=== PATIENT | male | born 1975 | race Caucasian/White ===

== ENCOUNTER 2019-07-16 07:06 | Inpatient (IN) ==
[2019-07-16 07:49] LABS: BASO# 0.03 X1000 (0.0-0.2); BASO% 0.5 % (0.0-0.8); EOS# 0.14 X1000 (0.0-0.7); EOS% 2.2 % (0.0-10.0); HEMATOCRIT 48.1 % (42.0-52.0); HEMOGLOBIN 16.8 g/dL (14.0-18.0); IMM GRAN# 0.02 X1000 (0.0-0.04); IMM GRAN% 0.3 % (0.0-0.5); LYMPH% 17.3 % (20.5-51.1); MCH 29.8 PG (27-31); MCHC 34.9 g/dL (33-37); MCV 85.4 FL (81-99); MONO% 9.4 % (1.7-9.3); MPV 10.3 FL (7.4-10.4); NEUT# 4.47 X1000 (1.4-6.5); NEUT% 70.3 % (42.2-75.2); PLT 289 X1000 (130-400); RBC 5.63 XMIL (4.7-6.1); RDW 12.8 % (11.5-14.5); WBC 6.36 X1000 (4.8-10.8)
[2019-07-16 07:58] LABS: URINE SOURCE CLEAN CATCH
[2019-07-16 08:12] LABS: AGAP 14; ALB/GLOB RATIO 1.2; ALBUMIN 4.3 g/dL (3.5-5.0); ALKALINE PHOSPHATASE 177 U/L (32-122); AMYLASE 44 U/L (20-200); BUN 15 mg/dL (8-22); CALCIUM 9.9 mg/dL (8.8-10.2); CHLORIDE 97 mmol/L (98-107); COSMO 283; CREATININE 1.2 mg/dL (0.7-1.2); ESTIMATED GFR > 60; GLUCOSE 111 mg/dL (70-104); GOT 119 U/L (10-34); GPT 291 U/L (10-44); LIPASE 27 U/L (13-60); SODIUM 141 mmol/L (136-145); TCO2 30 mmol/L (25-35); TOTAL BILIRUBIN 8.24 mg/dL (0.20-1.00)
[2019-07-16 08:13] LABS: BLOOD URINE NEGATIVE (NEGATIVE); COLOR YELLOW; GLUCOSE URINE NEGATIVE (NEGATIVE); KETONE URINE NEGATIVE (NEGATIVE); LEUKOCYTES URINE NEGATIVE (NEGATIVE); NITRITE URINE NEGATIVE (NEGATIVE); PH URINE 6.5; PROTEIN URINE 30 mg/dL (NEGATIVE); SP GRAVITY URINE 1.024; TURBIDITY URINE CLEAR (CLEAR); UROBILINOGEN URINE 3 mg/dL (NORMAL)
[2019-07-16 08:16] LABS: UR EPITHELIAL CELLS <10 /HPF (<10); URINE BACTERIA NEGATIVE /HPF; URINE RBC 20-40 /HPF (<10); URINE WBC <10 /HPF (<10)
[2019-07-16 08:30] LABS: URINE CRYSTALS NONE SEEN
[2019-07-16 08:31] LABS: BILIRUBIN URINE LARGE (NEGATIVE)
--- NOTE | 2019-07-16 08:48 | PROVIDER DOCUMENTATION ---
HPI-Abdominal Pain/GI Problem - General Chief Complaint: Abdominal Pain Stated Complaint: ABDOMINAL PAIN Time Seen by Provider: 07/16/19 08:06 Source: patient Allergies/Adverse Reactions: Patient Allergies Allergy/AdvReac Type Severity Reaction Status Date / Time No Known Allergies Allergy Verified 07/16/19 10:18 Home Medications: Home Medication List Medication Instructions Recorded Confirmed Last Taken Type Amlodipine [Norvasc] 1 tab PO DAILY 07/16/19 07/16/19 Unknown History Escitalopram [Lexapro] 1 tab PO DAILY 07/16/19 07/16/19 Unknown History Hydrochlorothiazide 1 tab PO DAILY 07/16/19 07/16/19 Unknown History Losartan [Cozaar] 1 tab PO DAILY 07/16/19 07/16/19 Unknown History Potassium Chloride 1 tab PO DAILY 07/16/19 07/16/19 Unknown History - History of Present Illness-ABD Nature of Presenting Problems: 43 yr old M, hx of HTN, presenting with a now-5 day hx of gnawing epigastric abdominal pain, with associated nausea, increasing jaundice, and pale stools. The pt states that he has been having "attacks" on and off for the past few years, and has had two "attacks" in the past preceding month. The pt describes these "attacks" as gnawing abdominal discomfort, sometimes accompanied with spasms, in the epigastric region; usually associated with nausea, but not always; pt also notes that the symptoms tend to start after a meal or a dark beer. He has been evaluated by Dr. Daily; has undergone barium swallow, and is sent to undergo EGD later this month; this most recent episode started and has lasted the longest of any of his episodes; his notes that he has also changed in color, becoming more yellow. Abdominal Pain Onset Location: reports: epigastric Pain Radiation: reports: RUQ Quality of Pain: reports: cramping, indigestion Severity in ED: reports: moderate Onset/Duration: reports: 5 days ago Timing: reports: still present Activities at Onset: reports: eating Exposure to sick contacts?: No Modifying Factors: improves with: nothing Associated Symptoms: reports: nausea Dark Stools Present?: reports: none noticed, other (pale stools) Review of Systems - Adult - REVIEW OF SYSTEMS - ADULT Constitutional: reports: no symptoms reported Eyes: reports: no symptoms reported Ears, Nose, Mouth & Throat: reports: no symptoms reported Cardiovascular: reports: no symptoms reported Respiratory: reports: no symptoms reported Gastrointestinal: reports: see HPI Genitourinary: reports: no symptoms reported Musculoskeletal: reports: no symptoms reported Integumentary: reports: see HPI Neurological: reports: no symptoms reported Psychiatric: reports: no symptoms reported Past History - Adult - PAST MEDICAL HISTORY-ADULT Review of Records: reports: Nursing Assessment Review Cardiovascular: reports: HTN - PRIOR SURGERIES/PROCEDURES Surgical/Procedure History: reports: none - SOCIAL HISTORY Smoking: chew Living Situation: family Physical Exam-General - PHYSICAL EXAM-ADULT Initial Vital Signs Reviewed: Yes - CONSTITUTIONAL General Appearance: alert, no apparent distress - EYES Eyes: other (sclera are yellow) - HEAD, EARS, NOSE, MOUTH & THROAT HENMT: normocephalic/atraumatic, moist mucous membranes - RESPIRATORY Respiratory: lungs clear, normal breath sounds - CARDIOVASCULAR Cardiovascular: regular rate, rhythm - GASTROINTESTINAL (ABDOMEN) Abdominal Exam: soft, tenderness (mild, epigastric) - MUSCULOSKELETAL Extremity: no pedal edema, no calf tenderness - SKIN Integumentary: warm/dry, jaundice (mild tint, most noticeable in the eyes) - PSYCHIATRIC Psych/Mental Status: oriented x 3 Progress - PLAN OF CARE/RESULTS Progress/Plan/Lab Results: Vital Signs - 8 hr 07/16/19 07:18 Temperature 97.8 F Pulse Rate 115 H Respiratory Rate 20 Blood Pressure 132/84 O2 Sat by Pulse Oximetry 96 Laboratory Results - last 24 hr 07/16/19 07/16/19 07/16/19 07:24 07:24 07:36 WBC 6.36 RBC 5.63 Hgb 16.8 Hct 48.1 MCV 85.4 MCH 29.8 MCHC 34.9 RDW Std Deviation 12.8 Plt Count 289 MPV 10.3 Immature Gran % (Auto) 0.3 Neut % (Auto) 70.3 Lymph % (Auto) 17.3 L [place] % (Auto) 9.4 H Eos % (Auto) 2.2 Baso % (Auto) 0.5 Immature Gran # (Auto) 0.02 Neut # (Auto) 4.47 Lymph # (Auto) 1.10 L [place] # (Auto) 0.60 H Eos # (Auto) 0.14 Baso # (Auto) 0.03 Sodium 141 Potassium 3.0 L Chloride 97 L Carbon Dioxide 30 Anion Gap 14 BUN 15 Creatinine 1.2 Estimated GFR/1.73 m2 > 60 BUN/Creatinine Ratio 13 Glucose 111 H Calculated Osmolality 283 Calcium 9.9 Total Bilirubin 8.24 H AST 119 H ALT 291 H Alkaline Phosphatase 177 H Total Protein 8.0 Albumin 4.3 Globulin 3.7 Albumin/Globulin Ratio 1.2 Amylase 44 Lipase 27 Urine Source CLEAN CATCH Urine Color YELLOW Urine Turbidity CLEAR Urine pH 6.5 Ur Specific [place] 1.024 Urine Protein 30 A Ur Glucose (Stick) NEGATIVE Ur Ketones (Stick) NEGATIVE Urine Blood NEGATIVE Urine Nitrite NEGATIVE Urine Bilirubin LARGE A Urobilinogen Dipstick 3 A Urine Leukocytes NEGATIVE Urine WBC (Auto) <10 Urine RBC (Auto) 20-40 A U Epithel Cells (Auto) <10 Urine Bacteria (Auto) NEGATIVE Urine Crystals NONE SEEN Small Round Cells Not Reportable Urine Casts Not Reportable Urine Yeast-like Cells Not Reportable Orders Category Date Time Status Saline Loc DIRECTED Care 07/16/19 07:20 Active NPO Diet 07/16/19 07:[address] ABDOMEN/PELVIS W/O CONTRAST [CT] Stat Exams 07/16/19 08:42 Ordered AMYLASE [CHEM] Stat Lab 07/16/19 07:24 Completed CBC WITH ELECTRONIC DIFF [HEME] Stat Lab 07/16/19 07:24 Completed COMPREHENSIVE METABOLIC PANEL [CHEM] Stat Lab 07/16/19 07:24 Completed LIPASE [CHEM] Stat Lab 07/16/19 07:24 Completed URINALYSIS W/POSS RFLX CULT [URINALYSIS] Stat Lab 07/16/19 07:36 Completed URINE MANUAL MICROSCOPIC [URINALYSIS] Stat Lab 07/16/19 07:36 Completed Result Diagrams: 07/16/19 08:55 07/16/19 08:55 - XRAY 1 XRAY Study: Chest Impression: See EMR Report ("EXAM: CHEST-1 VIEW HISTORY: abdominal pain/ sepsis? TECHNIQUE: Single view COMPARISON: None. FINDINGS: Poor inspiratory effort. The right hemidiaphragm is elevated.. The heart is not enlarged. The vessels are not distended. Minimal increased markings in the left base believed to be atelectasis. No consolidation. No effusion identified. IMPRESSION: No pneumonia") - CT/MRI 1 CT Study: Abdomen, Pelvis Impression: See EMR Report ( EXAM: CT ABDOMEN/PELVIS W/O CONTRAST 07/16/2019 HISTORY: abd pain, jaundice TECHNIQUE: This exam was performed using automated exposure control, adjustment of mA or kV according to patient size, and/or use of iterative reconstruction technique. COMMENT: There are linear opacities in the posterior medial right lower lobe and the left lower lobe, which were not present on 08/22/2017. There is mild bilateral gynecomastia. The gallbladder is distended and edematous in appearance which was not the case previously. There is a small densely calcified gallstone measuring 2 mm in the neck of the gallbladder. The cystic duct appears somewhat distended. The common bile duct measures over 13 mm. No appreciable stones are demonstrated in the common duct. The pancreas is unremarkable. The adrenal glands are not enlarged. The spleen is enlarged measuring over 14 cm. There is some apparent periportal edema and intrahepatic biliary dilatation. The kidneys are without evidence of hydronephrosis or stones. There is no evidence of bowel obstruction. The aorta is calcified without evidence of aneurysm. There is an appendicolith however the appendix is not distended and there is no evidence of inflammation. There is some stool in the rectum and sigmoid colon. The urinary bladder is not distended. There is no free fluid. The regional skeleton is intact. IMPRESSION: Biliary dilatation, cholelithiasis and possible cholecystitis.) - CONSULTS/PCP/HOSPITALIST Notification #1 *Consult/PCP/Hospitalist*: Mitali (for hospitalist) Time Discussed: 09:55 Consult Disposition: other (asked me to speak with [facility] to determine if they wanted to admit to the hospitalist service) #2 Consult: Dr. Duque Time Discussed: 10:05 Consult Disposition: other (asks for hospitalist to admit; will see inpatient) #3 Consult: Mitali (for hospitalist) Time Discussed: 10:18 Consult Disposition: Admit Departure - Departure Date of Disposition Decision: 07/16/19 Time of Disposition Decision: 10:06 DIAGNOSIS: Cholecystitis, acute with cholelithiasis Qualifiers: Biliary obstruction: with biliary obstruction Qualified Code(s): K80.01 - Calculus of gallbladder with acute cholecystitis with obstruction Disposition: ADMITTED INPATIENT 09 Certified Medical Emergency: Emergent Condition: Stable - Critical Care Note This patient required my direct & personal management of CC.: No Attestation - Physician/ ABA Attestation Patient care was provided by Advanced Practice Provider:: No The physician spent face to face time with patient:: Yes Advanced Practice Provider documentation review:: Supervising physician onsite and consulted in the evaluation and care of this patient. The physician did have a face to face encounter with the patient.
[2019-07-16 09:25] LABS: BASO# 0.02 X1000 (0.0-0.2); BASO% 0.3 % (0.0-0.8); EOS# 0.11 X1000 (0.0-0.7); EOS% 1.5 % (0.0-10.0); HEMATOCRIT 47.5 % (42.0-52.0); HEMOGLOBIN 16.2 g/dL (14.0-18.0); IMM GRAN# 0.02 X1000 (0.0-0.04); IMM GRAN% 0.3 % (0.0-0.5); LYMPH# 1.03 X1000 (1.2-3.4); LYMPH% 14.4 % (20.5-51.1); MCH 29.3 PG (27-31); MCHC 34.1 g/dL (33-37); MCV 85.9 FL (81-99); MONO# 0.78 X1000 (0.11-0.59); MONO% 10.9 % (1.7-9.3); MPV 10.4 FL (7.4-10.4); NEUT# 5.17 X1000 (1.4-6.5); NEUT% 72.6 % (42.2-75.2); PLT 257 X1000 (130-400); RBC 5.53 XMIL (4.7-6.1); RDW 12.7 % (11.5-14.5); WBC 7.13 X1000 (4.8-10.8)
--- NOTE | 2019-07-16 09:30 | Diag Imaging Result Doc PS360 ---
EXAM: CT ABDOMEN/PELVIS W/O CONTRAST 07/16/2019 HISTORY: abd pain, jaundice TECHNIQUE: This exam was performed using automated exposure control, adjustment of mA or kV according to patient size, and/or use of iterative reconstruction technique. COMMENT: There are linear opacities in the posterior medial right lower lobe and the left lower lobe, which were not present on 08/22/2017. There is mild bilateral gynecomastia. The gallbladder is distended and edematous in appearance which was not the case previously. There is a small densely calcified gallstone measuring 2 mm in the neck of the gallbladder. The cystic duct appears somewhat distended. The common bile duct measures over 13 mm. No appreciable stones are demonstrated in the common duct. The pancreas is unremarkable. The adrenal glands are not enlarged. The spleen is enlarged measuring over 14 cm. There is some apparent periportal edema and intrahepatic biliary dilatation. The kidneys are without evidence of hydronephrosis or stones. There is no evidence of bowel obstruction. The aorta is calcified without evidence of aneurysm. There is an appendicolith however the appendix is not distended and there is no evidence of inflammation. There is some stool in the rectum and sigmoid colon. The urinary bladder is not distended. There is no free fluid. The regional skeleton is intact. IMPRESSION: Biliary dilatation, cholelithiasis and possible cholecystitis. Electronically signed by Abhinav Boykin 07/16/2019 9:27 AM
--- NOTE | 2019-07-16 09:30 | Diag Imaging Result Doc PS360 ---
EXAM: CHEST-1 VIEW HISTORY: abdominal pain/ sepsis? TECHNIQUE: Single view COMPARISON: None. FINDINGS: Poor inspiratory effort. The right hemidiaphragm is elevated.. The heart is not enlarged. The vessels are not distended. Minimal increased markings in the left base believed to be atelectasis. No consolidation. No effusion identified. IMPRESSION: No pneumonia Electronically signed by Dilan Mckenzie 07/16/2019 9:28 AM
[2019-07-16 09:42] LABS: INR 1.01; PROTIME 13.4 Seconds (11.0-16.0)
[2019-07-16 09:43] LABS: PTT 29.1 Seconds (22.3-41.8)
[2019-07-16 09:46] LABS: AGAP 12; ALB/GLOB RATIO 1.5; ALBUMIN 4.3 g/dL (3.5-5.0); ALKALINE PHOSPHATASE 181 U/L (32-122); BUN 17 mg/dL (8-22); CHLORIDE 99 mmol/L (98-107); COSMO 285; CREATININE 1.2 mg/dL (0.7-1.2); ESTIMATED GFR > 60; GLUCOSE 101 mg/dL (70-104); GOT 114 U/L (10-34); GPT 286 U/L (10-44); POTASSIUM 3.5 mmol/L (3.5-5.1); SODIUM 142 mmol/L (136-145); TCO2 31 mmol/L (25-35); TOTAL BILIRUBIN 8.53 mg/dL (0.20-1.00); TOTAL PROTEIN 7.2 g/dL (6.3-8.3)
[2019-07-16] MEDS ORDERED: ZOSYN 4.5 GM in NS 100 ML IV ONE (09:53)
[2019-07-16 09:55] LABS: CK PROFILE 90 U/L (24-204)
[2019-07-16] MEDS ORDERED: SENSORCAINE 0.25%/EPI 1:200,000 ONE (11:27)
[2019-07-16] MEDS ORDERED: SODIUM CHLORIDE 0.9% ONE (11:27)
[2019-07-16] MEDS ORDERED: LR 1,000 ML ONE ×3 (11:28→14:42)
[2019-07-16] MEDS ORDERED: KEFZOL 1 GM/D5W 1 GM/50 ML IVPB ONE (11:33)
[2019-07-16] MEDS ORDERED: DIPRIVAN 1% ONE (11:56)
[2019-07-16] MEDS ORDERED: ZEMURON ONE ×4 (11:57→13:35)
[2019-07-16] MEDS ORDERED: ZOFRAN ONE (11:57)
[2019-07-16] MEDS ORDERED: TORADOL ONE (11:57)
[2019-07-16] MEDS ORDERED: QUELICIN (DOSE) ONE (11:57)
[2019-07-16] MEDS ORDERED: DECADRON ONE (11:57)
[2019-07-16] MEDS ORDERED: XYLOCAINE-MPF 2% ONE (11:57)
[2019-07-16] MEDS ORDERED: FENTANYL ONE (11:59)
--- NOTE | 2019-07-16 12:00 | HISTORY AND PHYSICAL ---
PRIMARY CARE PROVIDER: Dr. Ramos CHIEF COMPLAINT: Abdominal discomfort, jaundice, pale stools, dark urine. HISTORY OF PRESENT ILLNESS: Mr. Samson is a 43-year-old male with a past medical history of hypertension, who reports now he has been having episodes of "attacks" on and off for the past few years with this that he describes as epigastric pain that is sometimes associated with nausea and it tends to flare up after meals or dark beer. He recently had 2 attacks last month. He has been evaluated by Dr. Daily. He underwent a barium swallow that just showed some mild gastric reflux. He was set to undergo an EGD later this month. However, he has been in the bed since with this constant abdominal pain. He did have 1 episode of vomitus on . His noticed yesterday that his eyes were yellow and his skin had become jaundice, so he was brought to the ED today where his liver enzymes were found to be elevated and bilirubin in his urine. He underwent an abdominal pelvis CT that showed biliary dilatation, cholelithiasis, and possible cholecystitis. Dr. Duque was called, and he is currently being taken to surgery for his cholecystectomy. He denies any headache, dizziness, fever, chills, chest pain, shortness of breath. REVIEW OF SYSTEMS: A 12-point review of systems completely negative except for those mentioned in HPI. PAST MEDICAL HISTORY: Hypertension. PAST SURGICAL HISTORY: [place] teeth removed years ago. FAMILY HISTORY: Reviewed and noncontributory. SOCIAL HISTORY: He is . He has 2 children. is at bedside. No tobacco use. Alcohol only on occasion. However, he will do chew tobacco. ALLERGIES: No known drug allergies. HOME MEDICATIONS: Will need to be compiled, but he does take hydrochlorothiazide, Norvasc, potassium, and losartan. PHYSICAL EXAMINATION: VITAL SIGNS: Temperature is 99.3 degrees, heart rate 102, respirations 21, blood pressure 138/104, and O2 is 94% on room air. GENERAL: Mr. Samson is a 43-year-old male who is sitting up in the stretcher in no acute distress. HEENT/SKIN: Atraumatic, normocephalic. PERRL. Sclerae are yellow. Skin is mildly jaundiced. CARDIOVASCULAR: S1 and S2 appreciated. No murmurs, gallops, rubs noted. RESPIRATORY: Lung sounds clear bilaterally. GASTROINTESTINAL: Soft, nontender, nondistended. Positive bowel sounds in 4 quadrants. EXTREMITIES: Lower extremities are negative for edema. Bilateral pedal pulses are pounding. NEUROLOGIC: No focal deficits noted. DIAGNOSTIC DATA: Abdomen and pelvis CT showed biliary dilatation, cholelithiasis, and possible cholecystitis. LABORATORY DATA: White count 7, hemoglobin and hematocrit of 16 and 47, platelet count is 257,000. Sodium 142, potassium 3.5, BUN 17, creatinine 1.2, blood glucose 101, T-bilirubin 8.53, AST 114, ALT 286, alkaline phosphatase 181. Urinalysis, 20 to 40 RBCs, large bilirubin, 30 protein. ASSESSMENT AND PLAN: 1. Acute cholecystitis with cholelithiasis and biliary obstruction. The patient will undergo a cholecystectomy with Dr. Duque. He remains nothing by mouth. His last meal and drink was last night. We will continue with IV fluids. He has been given IV antibiotics. Continue treatment per Dr. Duque. 2. Jaundice secondary to #1 3. Hypertension. We will resume home medications when reconciled. 4. Transaminitis secondary to #1. We will continue to trend LFTs. 5. Further recommendation to follow physician evaluation, laboratory, and diagnostic data. Dictated by AIXA Hargrove for Golden Moreland MD cc: MD Nakia Laird MD Bhavna Gowda, MD MTDD
[2019-07-16] MEDS ORDERED: VERSED ONE (12:03)
--- NOTE | 2019-07-16 12:09 | HISTORY AND PHYSICAL ---
HISTORY OF PRESENT ILLNESS: Mr. Vic Samson is a 43-year-old white male who presents to our emergency department with jaundice. He was evaluated in the emergency department, which included a CT scan of his abdomen and pelvis which suggested a dilated gallbladder with stones within it and also dilated common bile duct. We were asked to evaluate him for obstructive jaundice. PAST MEDICAL HISTORY: Hypertension. MEDICATIONS: Norvasc, Lexapro, hydrochlorothiazide, Cozaar, and potassium. ALLERGIES: No known drug allergies. SOCIAL HISTORY: His was at the bedside. He works in an [employer] shop. FAMILY HISTORY: Was reviewed with the patient and was noncontributory. REVIEW OF SYSTEMS: A 14-point review of systems was performed and was negative except for some intermittent epigastric pain. He has been evaluated by my partner, Dr. Isidro Daily for reflux including an upper GI. He was scheduled for pH monitoring in the near future. PHYSICAL EXAMINATION: VITAL SIGNS: On exam, his temperature is 97.8 degrees, pulse rate 115, blood pressure 132/84, and O2 saturation 96%. He is 235 pounds 6 feet. HEENT: He is jaundiced. He has no oral lesions. Satisfactory dentition. NECK: No cervical or supraclavicular lymphadenopathy. CARDIAC: His heart has a regular rate. LUNGS: Clear to auscultation and percussion bilaterally. ABDOMEN: Soft. There is no previous scar. I could not palpate his gallbladder. There was no evidence of hernia no costovertebral tenderness. RECTAL: Exam was not performed. He does have palpable peripheral pulses. No peripheral edema. NEUROLOGICAL: He is alert and oriented x3 and appropriate. No focal deficit. DIAGNOSTIC DATA: His white blood cell count is normal. Hematocrit is 47%. His total bilirubin is 8.53 with elevated liver function tests. CT scan suggests gallstones and possible acute cholecystitis. PLAN: Laparoscopic cholecystectomy with intraoperative cholangiogram. I have discussed the procedure in detail with him and his at the bedside in the emergency department. We specifically discussed risks of surgery, which include bleeding, infection, injury to the extrahepatic bile ducts requiring reoperation, conversion of laparoscopic to open cholecystectomy, bile leak requiring reoperation for drainage, and injury to intra-abdominal contents for trocar placement. He understands that he may have stones within his common bile duct and need ERCP. cc: Nakia Duque MD
[2019-07-16] MEDS ORDERED: SODIUM CHLORIDE 0.9% 10 ML ONE ×2 (12:43→14:53)
[2019-07-16] MEDS ORDERED: NEO-SYNEPHRINE ONE (12:43)
[2019-07-16] MEDS ORDERED: EPHEDRINE ONE ×2 (13:26→13:48)
[2019-07-16] MEDS ORDERED: NEOSTIGMINE ONE (13:48)
[2019-07-16] MEDS ORDERED: ROBINUL ONE (13:48)
--- NOTE | 2019-07-16 14:10 | Diag Imaging Result Doc PS360 ---
EXAM: OPERATIVE CHOLANGIOGRAM 07/16/2019 HISTORY: CHOLECYSTECTOMY TECHNIQUE: Intraoperative cholangiogram three images COMMENT: There is a filling defect in the distal common bile duct. This is highly suggestive of stone. No contrast is seen in the duodenum. IMPRESSION: Retained stone in the distal common bile duct. Electronically signed by Abhinav Boykin 07/16/2019 2:07 PM
[2019-07-16] MEDS: PHENERGAN ONE ×2 (14:55→15:08)
--- NOTE | 2019-07-16 15:05 | OPERATIVE NOTE ---
PROCEDURE DATE: 07/16/2019 PREOPERATIVE DIAGNOSIS: Acute cholecystitis with cholelithiasis. POSTOPERATIVE DIAGNOSIS: Acute cholecystitis with cholelithiasis. PRINCIPAL PROCEDURE: Laparoscopic cholecystectomy with intraoperative cholangiogram. SURGEON: Nakia Duque MD. BRICK CLEANER: RN. ANESTHESIA: General in addition to local anesthetic. ESTIMATED BLOOD LOSS: 75 mL. DRAINS: A Seferino drain right upper quadrant of the abdomen. INDICATIONS: Mr. Vic Samson is a 43-year-old white male who presented to our emergency department with a several day history of epigastric abdominal pain. He was also jaundice. A CT scan was performed which documented acute cholecystitis with cholelithiasis and a dilated extrahepatic bile ducts. Cholecystectomy was recommended. FINDINGS: The liver appeared to be healthy. The gallbladder was tightly distended. The cystic duct was dilated. He had acute cholecystitis with cholelithiasis. This was a difficult procedure in dissecting the triangle of [place]. We did do an intraoperative cholangiogram, which suggested a stone in the distal common bile duct. The dye did not get into the duodenum, the common bile duct was dilated as was the cystic duct. We had to use Endoloops to control the cystic duct because of its size. We felt we did the operation safely. We did leave a drain. No other intraabdominal pathology was noted. DESCRIPTION OF PROCEDURE: The patient was brought to the operating room, placed supine, received general anesthesia, was intubated. The abdomen was prepped and draped within a sterile field. We made a curvilinear incision below the umbilicus using a 15 blade scalpel. Veress needle was introduced through this incision into the abdomen. Pneumoperitoneum was established. The Veress needle was removed and we placed 11 mm trocar through this incision into the abdomen. The camera was placed through this port and the abdomen was explored for injury, there was none. Three other trocars were placed along the right costal margin under direct vision the camera. I placed a 11 mm trocar just to the right of the midline and two 5 mm trocars in our midclavicular and anterior axillary lines. We had to decompress the gallbladder initially so we used a needle and suction to remove white bile out of the gallbladder. Once it was decompressed we could manipulate it. We used a grasper with teeth to grab the fundus and retract it superiorly along with the right lobe of the liver. Another grasper was used to grab the body of the gallbladder and we began dissecting out the triangle of [place]. This was a difficult dissection and we had to place a fan retractor through another 11 mm trocar site left side of abdomen so that we could push down the omentum and transverse colon so that we could see the triangle of [place]. We bluntly dissected this area. We identified the cystic artery. A clip was placed distally, 2 proximally. It was divided using hook scissors. We had a lymph node right here at the triangle of Calot. We had to carefully dissect out the cystic duct which was dilated. It was fairly short. Once we felt we had the anatomy identified, I made a small incision in the cystic duct right at the cystic duct gallbladder junction and used a Taut intraoperative cholangiogram catheter to perform the cholangiogram with the findings above. After this we took the gallbladder down in a retrograde approach. We took the gallbladder off the liver bed and then I placed 0 PDS Endoloops around the gallbladder and down onto the cystic duct and tightened these Endoloops. I used 2 of them on the cystic duct. We divided the cystic duct and left the stump past these two 0 PDS Endoloops controlling the cystic duct. I then used an endobag to remove the gallbladder through our 11 mm port site. I placed this port back intraabdominally. We took time to thoroughly irrigate out the area of operation. There was no evidence of bile leak or ongoing bleeding but I did leave a Seferino drain in the right upper quadrant. It was brought out through our most lateral 5 mm port site and I secured it to the skin with a 2-0 nylon stitch. It was hooked to bulb suction. All trocars removed under direct vision the camera. The pneumoperitoneum was allowed to dissipate. I used [id number] 2-0 Vicryl stitches to reapproximate the fascia at the umbilicus. All skin was closed with 4-0 Monocryl subcuticular stitches. Steri-Strips and dressings were applied. I spoke with Dr. Morrison while I was still in surgery about ERCP. cc: Nakia Duque MD [facility]ICAL CENTERGaby
[2019-07-16] MEDS ORDERED: ZOFRAN IV PRN (15:48)
[2019-07-16] MEDS ORDERED: DEMEROL IV PRN (15:48)
[2019-07-16] MEDS ORDERED: NS 1,000 ML IV SCH (15:48)
[2019-07-16] MEDS ORDERED: PHENERGAN IV PRN (15:52)
[2019-07-16] MEDS ORDERED: MORPHINE IV PRN (15:53)
[2019-07-16] MEDS: LR 1,000 ML IV SCH (16:00)
[2019-07-16] MEDS ORDERED: SODIUM CHLORIDE 0.9% INJ PRN (16:00)
[2019-07-16] MEDS: NORCO-10 PO PRN ×2 (17:00→23:56)
[2019-07-16] MEDS: ZOSYN 3.375 GM in NS 50 ML IV SCH ×2 (17:42→23:56)
--- NOTE | 2019-07-16 19:04 | HISTORY AND PHYSICAL ---
ADDENDUM: This is a 43-year-old gentleman. He was extremely hyperbilirubinemic and AST and ALT, so he had most likely cholecystitis, but he also had choledocholithiasis, which was confirmed on IOC. He is seen postoperatively. He is still very jaundiced. His wounds look good. Plan is he has gotten his laparoscopic cholecystectomy, and he will get an ERCP tomorrow per Dr. Morrison, and we will continue to monitor. cc: MD Nakia Laird MD
[2019-07-16] MEDS: PERIDEX MT SCH (23:57)
[2019-07-17] MEDS: ZOSYN 3.375 GM in NS 50 ML IV SCH ×3 (05:34→20:40)
[2019-07-17] MEDS: LR 1,000 ML IV SCH (05:37)
[2019-07-17] MEDS ORDERED: NS 0 ML ONE (05:41)
[2019-07-17] MEDS: NORCO-10 PO PRN ×2 (06:14→20:41)
[2019-07-17 07:18] LABS: BASO# 0.02 X1000 (0.0-0.2); BASO% 0.2 % (0.0-0.8); EOS# 0.06 X1000 (0.0-0.7); EOS% 0.7 % (0.0-10.0); HEMATOCRIT 44.4 % (42.0-52.0); HEMOGLOBIN 14.9 g/dL (14.0-18.0); IMM GRAN# 0.03 X1000 (0.0-0.04); IMM GRAN% 0.3 % (0.0-0.5); LYMPH# 1.22 X1000 (1.2-3.4); LYMPH% 13.3 % (20.5-51.1); MCH 29.5 PG (27-31); MCHC 33.6 g/dL (33-37); MCV 87.9 FL (81-99); MONO# 0.73 X1000 (0.11-0.59); MPV 10.5 FL (7.4-10.4); NEUT# 7.09 X1000 (1.4-6.5); NEUT% 77.5 % (42.2-75.2); PLT 316 X1000 (130-400); RBC 5.05 XMIL (4.7-6.1); WBC 9.15 X1000 (4.8-10.8)
[2019-07-17] MEDS ORDERED: VERSED ONE (07:27)
[2019-07-17] MEDS ORDERED: DIPRIVAN 1% ONE ×2 (07:27)
[2019-07-17] MEDS ORDERED: XYLOCAINE-MPF 2% ONE (07:28)
[2019-07-17] MEDS ORDERED: ROBINUL ONE (07:28)
[2019-07-17] MEDS ORDERED: INDOCIN ONE (07:38)
[2019-07-17 07:41] LABS: AGAP 13; ALB/GLOB RATIO 1.4; ALKALINE PHOSPHATASE 156 U/L (32-122); BUN 15 mg/dL (8-22); CALCIUM 9.2 mg/dL (8.8-10.2); CHLORIDE 98 mmol/L (98-107); COSMO 279; ESTIMATED GFR > 60; GLUCOSE 107 mg/dL (70-104); GOT 132 U/L (10-34); GPT 257 U/L (10-44); MAGNESIUM 1.8 mg/dL (1.5-2.7); POTASSIUM 3.2 mmol/L (3.5-5.1); SODIUM 139 mmol/L (136-145); TCO2 28 mmol/L (25-35); TOTAL BILIRUBIN 8.13 mg/dL (0.20-1.00); TOTAL PROTEIN 6.9 g/dL (6.3-8.3)
[2019-07-17 07:45] LABS: ALB/GLOB RATIO 1.8; ALBUMIN 4.1 g/dL (3.5-5.0); TOTAL BILIRUBIN 8.08 mg/dL (0.20-1.00); TOTAL PROTEIN 6.4 g/dL (6.3-8.3)
--- NOTE | 2019-07-17 08:36 | ENDOSCOPY OPERATIVE NOTE ---
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 PROCEDURE PERFORMED: ERCP with sphincterotomy/papillotomy ERCP with removal of calculus/calculi MEDICATIONS: Per Anesthesia CONSENT: The patient understands the risks and benefits of the procedure and understands that these r isks include, but are not limited to: sedation, allergic reaction, infection, perforation and/or bleeding. Alternative means of evaluation and treatment include, among others: physical exam, x-rays, and/or surgical intervention. The patient elects to proceed with this endoscopic procedure. HISTORY AND PHYSICAL: 07/17/2019 DESCRIPTION OF PROCEDURE: During intra-op preparation period all mechanical and medical equipment was checked for proper function. Hand hygiene and appropriate measures for infection prevention was taken. After the risks, benefits and alternatives of the procedure were thoroughly explained, Informed was verified, confirmed and timeout was successfully executed by the treatment team. With the patient in left semi-prone position, medications were admini stered intravenously.The [id number] ([id number]) was passed from the mouth into the esophagus and further advanc ed from the esophagus into the stomach. From stomach scope was directed to the second portion of the duodenum. M ajor papilla was aligned with the duodenoscope. The scope position was confirmed fluoroscopically. Rest of the finding s/therapeutics are given below. The scope was then completely withdrawn from the patient and the procedure completed. Th e pulse, BP, and O2 saturation were monitored and documented by the physician and the nursing staff throughout the ent josue procedure. The patient was cared for as planned according to standard protocol. The patient was then discharged to [facility] in stable condition and with appropriate post procedure care. ERCP: A family preservation worker film prior to endoscope insertion appeared normal. The Major Papilla was located in t he second portion of the duodenum. The major papilla appeared normal. Bile duct cannulation was attempted using the sphincterotome with guidewire. Cannulation of the bile duct was performed with ease. Deep cannulation was successf ully achieved. The cholangiogram revealed a single stone in the distal common bile duct. With guidewire within the bile duct, a biliary sphincterotomy was performed. A stone extraction was attempted using a stone extraction bal loon. The bile duct was swept three times. A single stone was removed from the bile duct. Multiple stone fragments were removed from the bile duct. Sludge was removed from the bile duct. ADVERSE EVENT: There were no complications. IMPRESSIONS: Common bile duct stone(s) RECOMMENDATIONS: 1. Disposition 2. Return to floor when standard parameters are met 3. Repeat liver function test in 2 week(s) 4. Start Clear liquid diet for 1 Day(s) 5. Resume current medications 6. Follow up to GI clinic in 3 week(s) REPEAT EXAM: John Morrison MD eSigned: John Morrison MD 07/17/2019 8:35 AM cc: MD Kg Jones MD PATIENT NAME: Vic Samson MR#: [id number]
--- NOTE | 2019-07-17 09:35 | Diag Imaging Result Doc PS360 ---
EXAM: ERCP-BILIARY AND PANCREATIC INDICATION: CBD stone, abnormal cholangiogram TECHNIQUE: COMPARISON: None. FINDINGS: Five spot fluoroscopic images were provided, which were performed during ERCP by Dr. Morrison. The common bile duct appears slightly prominent. No filling defects or strictures are appreciated, however. IMPRESSION: As above. Please correlate with live fluoroscopic imaging. Electronically signed by Mahendra Obrien 07/17/2019 9:33 AM
[2019-07-17] MEDS: HYDROCHLOROTHIAZIDE PO SCH (09:49)
[2019-07-17] MEDS: NORVASC PO SCH (09:50)
[2019-07-17] MEDS: PERIDEX MT SCH ×2 (09:50→20:41)
[2019-07-17] MEDS: LEXAPRO PO SCH (09:50)
[2019-07-17] MEDS: COZAAR PO SCH (09:50)
[2019-07-17] MEDS: KLOR-CON PO SCH (09:50)
[2019-07-17] MEDS: POTASSIUM CHLORIDE 20 MEQ/SWI 20 MEQ/100 ML IVPB IV SCH ×2 (11:43→14:57)
--- NOTE | 2019-07-17 20:37 | PROGRESS NOTE ---
DATE: 07/17/2019 SUBJECTIVE: He still fairly jaundice, but he looks better. OBJECTIVE: Vital signs: Blood pressure 127/82, heart rate 87, respiratory rate 14, temperature 97.6 degrees, 92% on room air. Cardiovascular: Regular rate and rhythm. Pulmonary: Bilateral breath sounds clear to auscultation. Gastrointestinal: Soft, nontender, nondistended. Bowel sounds are positive. LABORATORY DATA: White count 9, hemoglobin and hematocrit 14 and 44, platelets 316,000. Basic was normal, but bilirubin is still 8. AST and ALT are still up, 134 and 267, so we will see his numbers tomorrow. I think if they are stable, he should be able to go home. PROBLEM LIST: 1. Cholecystitis status post laparoscopic cholecystectomy. He seems to be doing okay. 2. Choledocholithiasis status post endoscopic retrograde cholangiopancreatography, also stabilizing. If his numbers are improved tomorrow, anticipate discharge. cc: MD Nakia Laird MD
[2019-07-18] MEDS: ZOSYN 3.375 GM in NS 50 ML IV SCH ×2 (04:52→08:36)
[2019-07-18 07:56] LABS: AGAP 9; ALB/GLOB RATIO 1.2; ALBUMIN 3.3 g/dL (3.5-5.0); ALKALINE PHOSPHATASE 152 U/L (32-122); BUN 10 mg/dL (8-22); CHLORIDE 98 mmol/L (98-107); COSMO 276; ESTIMATED GFR > 60; GLUCOSE 90 mg/dL (70-104); GOT 130 U/L (10-34); GPT 235 U/L (10-44); POTASSIUM 3.2 mmol/L (3.5-5.1); SODIUM 139 mmol/L (136-145); TCO2 32 mmol/L (25-35); TOTAL BILIRUBIN 6.19 mg/dL (0.20-1.00); TOTAL PROTEIN 6.1 g/dL (6.3-8.3)
[2019-07-18] MEDS: LEXAPRO PO SCH (08:35)
[2019-07-18] MEDS: KLOR-CON PO SCH (08:35)
[2019-07-18] MEDS: HYDROCHLOROTHIAZIDE PO SCH (08:35)
[2019-07-18] MEDS: NORVASC PO SCH (08:35)
[2019-07-18] MEDS: PERIDEX MT SCH (08:35)
[2019-07-18] MEDS: COZAAR PO SCH (08:35)
[2019-07-18 08:51] LABS: BASO# 0.02 X1000 (0.0-0.2); BASO% 0.4 % (0.0-0.8); EOS# 0.11 X1000 (0.0-0.7); EOS% 2.2 % (0.0-10.0); HEMATOCRIT 39.8 % (42.0-52.0); HEMOGLOBIN 13.5 g/dL (14.0-18.0); IMM GRAN# 0.04 X1000 (0.0-0.04); IMM GRAN% 0.8 % (0.0-0.5); LYMPH# 0.84 X1000 (1.2-3.4); LYMPH% 16.7 % (20.5-51.1); MCHC 33.9 g/dL (33-37); MCV 88.4 FL (81-99); MONO# 0.68 X1000 (0.11-0.59); MONO% 13.5 % (1.7-9.3); MPV 10.5 FL (7.4-10.4); NEUT# 3.34 X1000 (1.4-6.5); NEUT% 66.4 % (42.2-75.2); PLT 181 X1000 (130-400); RDW 12.8 % (11.5-14.5); WBC 5.03 X1000 (4.8-10.8)
--- NOTE | 2019-07-18 10:52 | DISCHARGE SUMMARY ---
ADMISSION DATE: 07/16/2019 DISCHARGE DATE: 07/18/2019 PRIMARY CARE PROVIDER: Priya Ramos MD CONSULTATIONS: 1. Dr. Nakia Duque with General Surgery. 2. Dr. John Morrison with Gastroenterology. PERTINENT PROCEDURES: 1. Abdomen and pelvis CT showed biliary dilatation, cholelithiasis, and possible cholecystitis. 2. Laparoscopic cholecystectomy with intraoperative cholangiogram and ERCP with a sphincterectomy and papillotomy performed by Dr. Morrison. DISCHARGE DIAGNOSES: 1. Cholecystitis status post laparoscopic cholecystectomy by Dr. Duque. 2. Choledocholithiasis status post ERCP with sphincterectomy and papillotomy by Dr. Morrison. The patient has been tolerating his clear liquid diet. He will follow up with Dr. Morrison in 3 weeks as well as Dr. Duque as instructed and has been given education on surgical tray and home care. HOSPITAL COURSE: Briefly, Mr. Samson is a 43-year-old male who presented to the ED with jaundice. Workup revealed transaminitis. CT scan of the abdomen and pelvis showed a dilated gallbladder with stones as well as a dilated common bile duct. He underwent a laparoscopic cholecystectomy with intraoperative cholangiogram as well as an ERCP with sphincterectomy and papillotomy with Dr. Morrison. He continues to have a drain in place. He is tolerating his clear liquid diet and will be discharged home to follow up with Dr. Morrison as well as Dr. Duque. DISCHARGE DIET: Clear liquids. He will advanced as educated. DISCHARGE MEDICATIONS: 1. Cozaar 50 mg p.o. daily. 2. Hydrochlorothiazide 12.5 mg p.o. daily. 3. Lexapro 10 mg p.o. daily. 4. Norvasc 5 mg p.o. daily. 5. Potassium chloride 10 mEq p.o. daily. 6. Antibiotics and pain medication will be as per surgical team. DISPOSITION: Mr. Samson will be discharged back home with self care. FOLLOW-UP INSTRUCTIONS: He will follow up with Dr. Duque and Dr. Morrison as well as his primary care provider, Dr. Ramos. He can return to the ED or call 911 for any worsening of symptoms. VITAL SIGNS: At time of discharge, temperature 98 degrees, heart rate 87, respirations 18, blood pressure 140/84. O2 is 92% on room air. Dictated by AIXA Hargrove for Jonatan Sim MD Addendum: Patient seen and examined by myself. Agree with AIXA note. It reflects my assessment and plan. Patient is being discharged in stable condition. Will be seen by GI and General surgery as already scheduled. cc: MD Jonatan Hua MD Lynn R. Buckner, MD Khurshid Yousuf, MD MTDD
[2019-07-18 11:39] VITALS: BP 142/84
[2019-07-18 14:49] LABS: IRON SATURATION 25 %; TIBC 255 ug/dL; TOTAL IRON 63 ug/dL (53-167); UNBOUND IRON 192 ug/dL (112-346)
--- NOTE | 2019-07-18 14:55 | GASTROENTEROLOGY PROGRESS NOTE ---
DATE: 07/18/2019 SUBJECTIVE: At the time of my visit, patient was being seen by Dr. Duque. He was removing his GERA drain. Patient had an ERCP on 07/17/2019 that showed a stone in the common bile duct. Stone extraction was performed and sphincterotomy was performed. There was no bile duct stent placed. The patient has had a slight improvement in his liver function tests today. He is planning to be discharged today. I have spoken with Dr. Duque. OBJECTIVE: Vital Signs: Temperature 98.3 degrees, pulse 94, respirations 20, blood pressure 142/84. Laboratory: Hematology: WBC 5.03, hemoglobin 13.5, hematocrit 39.8, MCV 88.4, platelets 181,000. Chemistry: Sodium 139, potassium 3.2, chloride 98, CO2 of 32, BUN 10, creatinine 1.0, glucose 90, calcium 9.0. Total bilirubin 6.19, AST 130, ALT 235, alkaline phosphatase 152. ASSESSMENT AND PLAN: 1. Cholelithiasis, status post laparoscopic cholecystectomy. 2. Acute cholecystitis, status post cholecystectomy. The patient has had his Shay-Harley drain removed today. 3. Elevated liver function tests, elevated bilirubin with abnormal cholangiogram suggesting a stone in the distal common bile duct. Patient is status post endoscopic retrograde cholangiopancreatography on 07/17/2019 with sphincterotomy and stone extraction. Bile duct stent was not placed. Continue symptomatic treatment and supportive care. Before the patient is discharged, would get lab tests for hepatitis profile and iron studies. Recommend patient have a repeat liver function test in 2 weeks and follow up with Dr. Morrison in the office in 3 weeks. Order was given for lab work. Further plans to be made according to his progress. I have discussed this case with Dr. Morrison. Dictated by AIXA Frank for John Morrison MD cc: AIXA Alcaraz MD Lynn R. Buckner, MD
[2019-07-19 11:41] LABS: HEPATITIS PROFILE ACUTE SEE COMMENTS
== END 2019-07-18 14:50 | disposition home or self-care (01) | DRG 419 ==
LOC: ED 07:06 → EDIPHOLD 07:07 → SUATTDRO 07:07 → SURHOLD 11:56 → 4N 14:21
PROVIDERS: ADMIT Surgery; ATTEND Internal Medicine
PROC: EN.ERCP (2019-07-17 08:10)